=== PATIENT | male | born 1960 | race Caucasian/White ===

== ENCOUNTER 2020-06-10 18:23 | Observation (INO) | payer OTHER ==
[~2020-06-10] VITALS: Ht 167 cm; Wt 63.5 kg
[~2020-06-10 18:23] MED LIST: ACHD5005 PO; CYCL10TA9 PO; NAPR-243 PO
[2020-06-10] MEDS ORDERED: HYDROmorphone 2 MG/ML VIAL (DILAUDID) ONE (18:37)
[2020-06-10] MEDS ORDERED: NS IV 1000 ML 1,000 ML ONE (18:40)
[2020-06-10 18:49] LABS: BASOPHILS # (AUTO) 0.1 10^3/uL (0.0-0.1); BASOPHILS % (AUTO) 0 % (0-10); EOSINOPHILS # (AUTO) 0.3 10^3/uL (0.0-0.3); EOSINOPHILS % (AUTO) 2 % (0-10); HEMATOCRIT 40 % (40-54); HEMOGLOBIN 13.8 G/DL (13.3-17.7); LYMPHOCYTES # (AUTO) 2.1 X 10^3 (1.0-4.0); LYMPHOCYTES % (AUTO) 14 % (12-44); MEAN CORPUSCULAR HEMOGLOBIN 33 PG (25-34); MEAN CORPUSCULAR HGB CONC 35 G/DL (32-36); MEAN CORPUSCULAR VOLUME 95 FL (80-99); MEAN PLATELET VOLUME 9.1 FL (7.4-10.4); MONOCYTES # (AUTO) 0.8 X 10^3 (0.0-1.0); MONOCYTES % (AUTO) 6 % (0-12); NEUTROPHILS # (AUTO) 11.2 X 10^3 (1.8-7.8); NEUTROPHILS % (AUTO) 78 % (42-75); PLATELET COUNT 271 10^3/uL (130-400); WHITE BLOOD COUNT 14.5 10^3/uL (4.3-11.0)
--- NOTE | 2020-06-10 18:50 | ED General ---
General Chief Complaint: Chest Wall Stated Complaint: FALL;RIB PAIN Source of Information: Patient Exam Limitations: No Limitations History of Present Illness Date Seen by Provider: Jun 10, 2020 Time Seen by Provider: 18:48 Initial Comments To ER with reports of a fall and shortness of breath/left lateral rib pain after a fall down a few stairs from about chest height just prior to arrival. Timing/Duration: 1-2 Days Severity: Moderate Associated Systoms: Denies Symptoms Allergies and Home Medications Allergies Coded Allergies: No Known Drug Allergies (Unverified , 02/23/12) Home Medications Cyclobenzaprine Hcl 10 Mg Tablet, 1 EACH PO Q8HR PRN Prescribed by: CHRIS WAKEFIELD on 02/23/12 1123 Hydrocodone Bit/Acetaminophen 1 Each Tablet, 1-2 EACH PO Q6H PRN Prescribed by: CHRIS WAKEFIELD on 02/23/12 1123 Naproxen 500 Mg Tablet, 1 EACH PO BID PRN Prescribed by: CHRIS WAKEFIELD on 02/23/12 1123 Patient Home Medication List Home Medication List Reviewed: Yes Review of Systems Review of Systems Constitutional: see HPI EENTM: see HPI Respiratory: no symptoms reported Cardiovascular: no symptoms reported Genitourinary: no symptoms reported Musculoskeletal: no symptoms reported Skin: no symptoms reported Psychiatric/Neurological: No Symptoms Reported Hematologic/Lymphatic: No Symptoms Reported Immunological/Allergic: no symptoms reported Past Wlwvjfa-Ffdaix-Uqnzsp Hx Patient Social History Alcohol Use: Occasionally Uses Recreational Drug Use: No Smoking Status: Current Everyday Smoker Type Used: Cigarettes Recent Foreign Travel: No Contact w/Someone Who Travel: No Recent Hopitalizations: No Seasonal Allergies Seasonal Allergies: No Past Medical History Surgeries: No Respiratory: No Cardiac: No Neurological: No Genitourinary: No Gastrointestinal: No Musculoskeletal: No Endocrine: No HEENT: No Cancer: No Psychosocial: No Integumentary: No Physical Exam Vital Signs Vital Signs - First Documented 06/10/20 18:23 Temp 36.0 Pulse 82 Resp 14 B/P (MAP) 88/53 (65) Pulse Ox 96 Capillary Refill : Height, Weight, BMI Height: '" Weight: lbs. oz. kg; BMI Method:Stated General Appearance: No Apparent Distress, Thin, Other (little abrasion to the left lateral chest without palpable crepitus. Initial blood pressure was 80 systolic, this was repeated on the left arm and found to be 111/69.) Eyes: Bilateral Eye Normal Inspection, Bilateral Eye PERRL HEENT: PERRL/EOMI, TMs Normal Respiratory: Normal Breath Sounds, No Accessory Muscle Use, No Respiratory Di stress Cardiovascular: Regular Rate, Rhythm, Normal Peripheral Pulses Gastrointestinal: Non Tender, Soft Extremity: Normal Capillary Refill, Normal Inspection Neurologic/Psychiatric: Alert, Oriented x3 Skin: Normal Color, Warm/Dry Progress/Results/Core Measures Suspected Sepsis SIRS Temperature: Pulse: Respiratory Rate: Laboratory Tests 06/10/20 18:21: White Blood Count 14.5H Blood Pressure / Mean: Laboratory Tests 06/10/20 18:21: Creatinine 0.91, Platelet Count 271, Total Bilirubin 0.2 Results/Orders Lab Results Laboratory Tests Test 06/10/20 18:21 Range/Units White Blood Count 14.5 H 4.3-11.0 10^3/uL Red Blood Count 4.16 L 4.35-5.85 10^6/uL Hemoglobin 13.8 13.3-17.7 G/DL Hematocrit 40 40-54 % Mean Corpuscular Volume 95 80-99 FL Mean Corpuscular Hemoglobin 33 25-34 PG Mean Corpuscular Hemoglobin Concent 35 32-36 G/DL Red Cell Distribution Width 14.5 10.0-14.5 % Platelet Count 271 130-400 10^3/uL Mean Platelet Volume 9.1 7.4-10.4 FL Neutrophils (%) (Auto) 78 H 42-75 % Lymphocytes (%) (Auto) 14 12-44 % Monocytes (%) (Auto) 6 0-12 % Eosinophils (%) (Auto) 2 0-10 % Basophils (%) (Auto) 0 0-10 % Neutrophils # (Auto) 11.2 H 1.8-7.8 X 10^3 Lymphocytes # (Auto) 2.1 1.0-4.0 X 10^3 Monocytes # (Auto) 0.8 0.0-1.0 X 10^3 Eosinophils # (Auto) 0.3 0.0-0.3 10^3/uL Basophils # (Auto) 0.1 0.0-0.1 10^3/uL Neutrophils % (Manual) 80 % Lymphocytes % (Manual) 11 % Monocytes % (Manual) 5 % Eosinophils % (Manual) 3 % Band Neutrophils 1 % Blood Morphology Comment NORMAL Sodium Level 138 135-145 MMOL/L Potassium Level 4.2 3.6-5.0 MMOL/L Chloride Level 101 98-107 MMOL/L Carbon Dioxide Level 25 21-32 MMOL/L Anion Gap 12 5-14 MMOL/L Blood Urea Nitrogen 9 7-18 MG/DL Creatinine 0.91 0.60-1.30 MG/DL Estimat Glomerular Filtration Rate > 60 BUN/Creatinine Ratio 10 Glucose Level 101 70-105 MG/DL Calcium Level 9.1 8.5-10.1 MG/DL Corrected Calcium 8.9 8.5-10.1 MG/DL Total Bilirubin 0.2 0.1-1.0 MG/DL Aspartate Amino Transf (AST/SGOT) 24 5-34 U/L Alanine Aminotransferase (ALT/SGPT) 14 0-55 U/L Alkaline Phosphatase 48 40-136 U/L Total Protein 7.7 6.4-8.2 GM/DL Albumin 4.3 3.2-4.5 GM/DL My Orders Orders - MARI NOEL APRN Hydromorphone Injection (Dilaudid Inject (06/10/20 18:37) Cbc With Automated Diff (06/10/20 18:43) Comprehensive Metabolic Panel (06/10/20 18:43) Chest 1 View, Ap/Pa Only (06/10/20 18:43) Ct Chest/Abdomen/Pelvis W (06/10/20 18:43) Ns Iv 1000 Ml (Sodium Chloride 0.9%) (06/10/20 18:40) Hydromorphone Injection (Dilaudid Inject (06/10/20 19:00) Hydromorphone Injection (Dilaudid Inject (06/10/20 19:00) Manual Differential (06/10/20 18:21) Iohexol Injection (Omnipaque 350 Mg/Ml 1 (06/10/20 19:00) Received Contrast (Hold Metformin- Contr (06/10/20 19:00) Ns (Ivpb) (Sodium Chloride 0.9% Ivpb Bag (06/10/20 19:00) Incentive Spirometry (Nursing) Q2H (06/10/20 19:58) Ketamine Syringe (Ed Only) (Ketamine Syr (06/10/20 20:00) Ns (Ivpb) (Sodium Chloride 0.9%) (06/10/20 20:15) Ns (Ivpb) (Sodium Chloride 0.9%) (06/10/20 19:59) Ketorolac Injection (Toradol Injection) (06/10/20 20:15) Medications Given in ED Current Medications Medications Dose Ordered Sig/Carlita Route Start Time Stop Time Status Last Admin Dose Admin Hydromorphone HCl 0.5 mg ONCE ONCE IV 06/10/20 19:00 06/10/20 19:01 DC 06/10/20 18:38 0.5 MG Hydromorphone HCl 0.5 mg ONCE ONCE IV 06/10/20 19:00 06/10/20 19:01 DC 06/10/20 19:30 0.5 MG Iohexol 100 ml ONCE ONCE IV 06/10/20 19:00 06/10/20 19:01 DC 06/10/20 19:12 100 ML Ketamine HCl 15 mg ONCE ONCE IV 06/10/20 20:00 06/10/20 20:01 DC 06/10/20 20:12 15 MG Sodium Chloride 100 ml ONCE ONCE IV 06/10/20 19:00 06/10/20 19:01 DC 06/10/20 19:12 100 ML Sodium Chloride 250 ml @ 999 mls/hr Q16M ONCE IV 06/10/20 20:15 06/10/20 20:30 06/10/20 20:12 999 MLS/HR Sodium Chloride 1,000 ml @ ud STK-MED ONCE .ROUTE 06/10/20 18:40 06/10/20 18:46 DC 06/10/20 18:40 999 MLS/HR Vital Signs/I&O 06/10/20 18:23 Temp 36.0 Pulse 82 Resp 14 B/P (MAP) 88/53 (65) Pulse Ox 96 Capillary Refill : Diagnostic Imaging Diagonstic Imaging: Xray Comments NAME: DOMONIQUE VERA MED REC#: [id number] PT STATUS: REG ER : 1960 PHYSICIAN: MARI NOEL APRN ADMIT DATE: 06/10/20/ER Signed Date of Exam:06/10/20 CT CHEST/ABDOMEN/PELVIS W PROCEDURE: CT chest, abdomen, and pelvis with contrast. TECHNIQUE: Multiple contiguous axial images were obtained through the chest, abdomen, and pelvis after the administration of intravenous contrast. Auto Exposure Controls were utilized during the CT exam to meet ALARA standards for radiation dose reduction. DATE: June 10, 2020. COMPARISON: June 10, 2020. INDICATION: 59-year-old male, fall. Left rib pain. Hypotension. FINDINGS: There are mild upper lobe findings of emphysema. There is a 3 mm right lower lobe pulmonary nodule on axial image 44. There is no identified lung mass. There is no otherwise noted focal airspace consolidation. There is no pneumothorax. There is no pleural effusion. The central airways are patent. There is no identified central pulmonary embolus. The main pulmonary artery is normal in caliber. The heart is not enlarged. There is no pericardial effusion. There are coronary artery calcifications and additional areas of atherosclerotic disease. There is no evidence of acute aortic injury. There is no mediastinal hematoma. The liver is unremarkable in size and contour. There is no identified liver laceration. There is no perihepatic fluid. The main, right, and left portal veins are patent. The gallbladder is unremarkable. There is no biliary ductal dilation. The main pancreatic duct is not abnormally dilated. Unremarkable appearance of the pancreatic parenchyma. The spleen is normal in size. The adrenal glands are unremarkable. Unremarkable appearance of the renal parenchyma. The urinary collecting systems are not distended. The urinary bladder is unremarkable. The intestinal tract is not distended. There is no free intraperitoneal air. There is no drainable fluid collection. There is no free pelvic fluid. There is no identified abnormally enlarged lymph node in the abdomen or pelvis meeting CT size criteria for adenopathy. There are 2 separate displaced fractures of the left 7th rib as well as a displaced fracture of the left 8th rib. There is a mildly displaced fracture of the right lateral 4th rib of uncertain exact age. There are chronic-appearing deformities of the right 3rd, 5th, and 6th ribs as well as a chronic-appearing deformity of the right 12th rib and 10th and 11th ribs. IMPRESSION: CT chest, abdomen, and pelvis. 1. Acute displaced fractures of the left 7th rib laterally, left 7th rib posteriorly, and left 8th rib. 2. No sizable pleural effusion or pneumothorax. 3. No additional acute cardiopulmonary abnormality. 4. No identified acute abnormality in the abdomen or pelvis. Dictated by: Dictated on workstation # [id number] Dict: 06/10/201920 Trans: 06/10/201930 CV [id number] Interpreted by: TRENT CASTILLO MD Electronically signed by: TRENT CASTILLO MD 06/10/201930 Departure Communication (Admissions) Time/Spoke to Admitting Phy: 20:16 1999-after 1mg dilaudid his pain is still at what he would consider an intolerable level. Ketamine ordered. We'll discuss with trauma surgeon. 2010-spoke with Dr. Joel, we'll admit, consult anesthesia for intercostal nerve block Impression Primary Impression: Rib fractures Additional Impression: Intractable pain Disposition: ADMITTED INPATIENT Condition: Stable Admissions Decision to Admit Reason: Admit from ER (Trauma) Decision to Admit/Date: Jun 10, 2020 Time/Decision to Admit Time: 19:59 Departure-Patient Inst. Decision time for Depature: 19:52 Referrals: NO,LOCAL PHYSICIAN (PCP/Family) Primary Care Physician MARI NOEL APRN Jun 10, 2020 18:50
[2020-06-10 18:58] LABS: ALBUMIN 4.3 GM/DL (3.2-4.5); CHLORIDE 101 MMOL/L (98-107); POTASSIUM 4.2 MMOL/L (3.6-5.0); SODIUM 138 MMOL/L (135-145)
[2020-06-10 18:59] LABS: CALCIUM 9.1 MG/DL (8.5-10.1)
[2020-06-10 19:00] LABS: GLUCOSE 101 MG/DL (70-105); TOTAL PROTEIN 7.7 GM/DL (6.4-8.2)
[2020-06-10] MEDS ORDERED: HOLD METFORMIN - RECEIVED CONTRAST 20 ML VIAL IV SCH (19:00)
[2020-06-10] MEDS ORDERED: HYDROmorphone 2 MG/ML VIAL (DILAUDID) IV ONE ×2 (19:00)
[2020-06-10] MEDS ORDERED: IOHEXOL 350 MG/ML 100 ML (OMNIPAQUE 350) VIAL IV ONE (19:00)
[2020-06-10] MEDS ORDERED: NS 100 ML (IVPB) BAG IV ONE (19:00)
[2020-06-10 19:01] LABS: CARBON DIOXIDE 25 MMOL/L (21-32)
[2020-06-10 19:02] LABS: BILIRUBIN,TOTAL 0.2 MG/DL (0.1-1.0)
[2020-06-10 19:04] LABS: ALKALINE PHOSPHATASE 48 U/L (40-136); CREATININE SERUM 0.91 MG/DL (0.60-1.30); GFR ESTIMATED > 60
[2020-06-10 19:05] LABS: BUN/CREATININE RATIO 10
--- NOTE | 2020-06-10 19:05 | NUR ---
ASSUMED CARE OF THIS PATIENT AT THIS TIME. REPORT FROM YOSEF GALICIA. PATIENT IN CT AT THIS TIME.
[2020-06-10 19:07] LABS: ALANINE AMINOTRANSFERASE 14 U/L (0-55)
--- NOTE | 2020-06-10 19:11 | Diagnostic Imaging Report ---
INDICATION: Fall with left rib pain, Single AP view of the chest is obtained. There is no previous study available at this time for comparison. Heart size and pulmonary vascularity are within normal limits. There is no pneumothorax or consolidation. There is a mildly displaced fracture involving the posterior aspect of left 6th rib with nondisplaced fracture involving left 7th rib. IMPRESSION: Left 6th and 7th rib fractures without evidence of pneumothorax or significant pulmonary contusion. Dictated by: Dictated on workstation # [id number]
--- NOTE | 2020-06-10 19:33 | Diagnostic Imaging Report ---
PROCEDURE: CT chest, abdomen, and pelvis with contrast. TECHNIQUE: Multiple contiguous axial images were obtained through the chest, abdomen, and pelvis after the administration of intravenous contrast. Auto Exposure Controls were utilized during the CT exam to meet ALARA standards for radiation dose reduction. DATE: June 10, 2020. COMPARISON: June 10, 2020. INDICATION: 59-year-old male, fall. Left rib pain. Hypotension. FINDINGS: There are mild upper lobe findings of emphysema. There is a 3 mm right lower lobe pulmonary nodule on axial image 44. There is no identified lung mass. There is no otherwise noted focal airspace consolidation. There is no pneumothorax. There is no pleural effusion. The central airways are patent. There is no identified central pulmonary embolus. The main pulmonary artery is normal in caliber. The heart is not enlarged. There is no pericardial effusion. There are coronary artery calcifications and additional areas of atherosclerotic disease. There is no evidence of acute aortic injury. There is no mediastinal hematoma. The liver is unremarkable in size and contour. There is no identified liver laceration. There is no perihepatic fluid. The main, right, and left portal veins are patent. The gallbladder is unremarkable. There is no biliary ductal dilation. The main pancreatic duct is not abnormally dilated. Unremarkable appearance of the pancreatic parenchyma. The spleen is normal in size. The adrenal glands are unremarkable. Unremarkable appearance of the renal parenchyma. The urinary collecting systems are not distended. The urinary bladder is unremarkable. The intestinal tract is not distended. There is no free intraperitoneal air. There is no drainable fluid collection. There is no free pelvic fluid. There is no identified abnormally enlarged lymph node in the abdomen or pelvis meeting CT size criteria for adenopathy. There are 2 separate displaced fractures of the left 7th rib as well as a displaced fracture of the left 8th rib. There is a mildly displaced fracture of the right lateral 4th rib of uncertain exact age. There are chronic-appearing deformities of the right 3rd, 5th, and 6th ribs as well as a chronic-appearing deformity of the right 12th rib and 10th and 11th ribs. IMPRESSION: CT chest, abdomen, and pelvis. 1. Acute displaced fractures of the left 7th rib laterally, left 7th rib posteriorly, and left 8th rib. 2. No sizable pleural effusion or pneumothorax. 3. No additional acute cardiopulmonary abnormality. 4. No identified acute abnormality in the abdomen or pelvis. Dictated by: Dictated on workstation # [id number]
[2020-06-10] MEDS ORDERED: NS (IVPB) 250 ML ONE (19:59)
[2020-06-10] MEDS ORDERED: KETAMINE/NaCl 50 MG/5 ML SYRINGE (ED ONLY) IV ONE (20:00)
[2020-06-10 20:03] LABS: BAND NEUTROPHILS 1 %; EOSINOPHILS % (MANUAL) 3 %; LYMPHOCYTES % (MANUAL) 11 %; MONOCYTES % (MANUAL) 5 %; NEUTROPHILS % (MANUAL) 80 %; RBC MORPH NORMAL
[2020-06-10] MEDS ORDERED: NS (IVPB) 250 ML IV ONE (20:15)
[2020-06-10] MEDS ORDERED: KETOROLAC 30 MG/ML VIAL IVP ONE (20:15)
[2020-06-10] MEDS ORDERED: LIDOCAINE 1% INJ 20 ML 20 ML VIAL ONE (21:15)
--- NOTE | 2020-06-10 21:20 | NUR ---
DOMONIQUE VERA admitted to room 419-1, with an admitting diagnosis of rib fracture and intractable pain, on 06/10/20 from [facility] via wheelchair, accompanied by staff.DOMONIQUE VERA introduced to surroundings, call light, bed controls, phone, TV, temperature control, lights, meal times, smoking policy, visitor policy, side rail policy, bathrooms and showers. Patient Rights given to patient in the handbook. DOMONIQUE VERA verbalizes understanding that [facility] is not responsible for the loss or damage to any personal effects or valuables that are kept in the patients posession during their hospitalization.
--- NOTE | 2020-06-10 21:30 | NUR ---
Pulled 1% Lidocaine for the anesthesiologist Dr. Attila Gonzalez. Patient did not tolerate intercostal block well and requested Dr. Gonzalez to stop after the first block was placed. Remaining Lidocaine placed in patient drawer with ID sticker.
[2020-06-10] MEDS ORDERED: ROPIVACAINE 5MG/ML 30ML VIAL ONE (21:38)
[2020-06-10 21:40] VITALS: BP 133/75
--- NOTE | 2020-06-10 21:41 | Anesthesia-Procedure Note ---
Procedures/Interventions Procedure Start/Stop/Diagnosis Date of Procedure: Jun 10, 2020 Start Time: 21:11 Stop Time: 21:25 Additional Procedures Procedures attempted intercostal nerve block. inject rib 8 on left after walking off rib inferiorly . 1 cc or .5 ropiviciane injected after negative aspiration. pt said i dont want anymore. procedure aborted. DAYANA SAAB CRNA Jun 10, 2020 21:41
--- NOTE | 2020-06-10 21:45 | NUR ---
Patient placed on continuous pulse ox. per Dr. Fallon orders. Oxygen saturation at %100.
[2020-06-10] MEDS ORDERED: LACTATED RINGERS 1,000 ML IV ONE (22:35)
[2020-06-10] MEDS ORDERED: KETOROLAC 15 MG/ML VIAL IV PRN (23:00)
[2020-06-10] MEDS ORDERED: HYDROmorphone 2 MG/ML VIAL (DILAUDID) IV PRN (23:00)
[2020-06-10] MEDS ORDERED: NALOXONE 0.4 MG/ML 1 ML (NARCAN) VIAL IV PRN (23:00)
[2020-06-10] MEDS: LACTATED RINGERS 1,000 ML IV SCH (23:15)
[2020-06-10] MEDS: oxyCODONE/APAP 10/325MG (PERCOCET 10) TABLET PO PRN (23:37)
[2020-06-11 00:12] VITALS: BP 98/66
[2020-06-11 00:30] VITALS: BP 111/69
[2020-06-11 04:00] VITALS: BP 108/76
[2020-06-11 05:05] LABS: BASOPHILS % (AUTO) 0 % (0-10); EOSINOPHILS # (AUTO) 0.3 10^3/uL (0.0-0.3); EOSINOPHILS % (AUTO) 4 % (0-10); HEMATOCRIT 35 % (40-54); HEMOGLOBIN 11.7 G/DL (13.3-17.7); LYMPHOCYTES # (AUTO) 2.2 X 10^3 (1.0-4.0); LYMPHOCYTES % (AUTO) 27 % (12-44); MEAN CORPUSCULAR HEMOGLOBIN 32 PG (25-34); MEAN CORPUSCULAR HGB CONC 34 G/DL (32-36); MEAN CORPUSCULAR VOLUME 96 FL (80-99); MEAN PLATELET VOLUME 9.2 FL (7.4-10.4); MONOCYTES # (AUTO) 0.9 X 10^3 (0.0-1.0); MONOCYTES % (AUTO) 11 % (0-12); NEUTROPHILS # (AUTO) 4.8 X 10^3 (1.8-7.8); NEUTROPHILS % (AUTO) 58 % (42-75); PLATELET COUNT 236 10^3/uL (130-400); WHITE BLOOD COUNT 8.3 10^3/uL (4.3-11.0)
[2020-06-11 05:12] LABS: ALBUMIN 3.5 GM/DL (3.2-4.5); CHLORIDE 106 MMOL/L (98-107); POTASSIUM 3.8 MMOL/L (3.6-5.0); SODIUM 138 MMOL/L (135-145)
[2020-06-11 05:13] LABS: CALCIUM 8.4 MG/DL (8.5-10.1)
[2020-06-11 05:15] LABS: GLUCOSE 84 MG/DL (70-105); TOTAL PROTEIN 5.9 GM/DL (6.4-8.2)
[2020-06-11 05:16] LABS: CARBON DIOXIDE 24 MMOL/L (21-32)
[2020-06-11 05:17] LABS: BILIRUBIN,TOTAL 0.3 MG/DL (0.1-1.0)
[2020-06-11 05:18] LABS: ALKALINE PHOSPHATASE 43 U/L (40-136); CREATININE SERUM 0.81 MG/DL (0.60-1.30); GFR ESTIMATED > 60
[2020-06-11 05:19] LABS: BUN/CREATININE RATIO 11
[2020-06-11 05:21] LABS: ALANINE AMINOTRANSFERASE 11 U/L (0-55)
[2020-06-11] MEDS: oxyCODONE/APAP 10/325MG (PERCOCET 10) TABLET PO PRN ×2 (05:27→11:07)
[2020-06-11] MEDS: LACTATED RINGERS 1,000 ML IV SCH (05:28)
[2020-06-11 08:00] VITALS: BP 104/71
[2020-06-11] MEDS ORDERED: RT-ALBUTEROL SULF 2.5 MG/3 ML PRE-MIX VIAL INH SCH (08:00)
[2020-06-11] MEDS ORDERED: DOCUSATE SODIUM 100 MG (COLACE) CAP PO SCH (09:00)
--- NOTE | 2020-06-11 09:12 | NUR ---
SPOKE WITH THE PT TO COMPLETE THE MED REC PT DENIES TAKING ANY PRESCRIPTION OR OTC MEDS I DID UPDATE THE PTS PREFERRED PHARMACY TO [facility]
--- NOTE | 2020-06-11 10:46 | History & Physical-Surgical ---
MARISSA SILVA MED STUDENT 06/11/20 1046: History of Present Illness History of Present Illness Reason for visit/HPI cc- L rib 7 and rib 8 fractures hpi: pt was sitting up in bed watching tv. pt stated that was walking and fell onto the steps and hit his left side. pt describes the pain as sharp. pt rated pain as an 8 out of 10. pt stated that coughing really makes the pain worse. pt stated that only the pain medications make the pain better. pt states that he is doing the incentive spirometer. there are no lacerations or any bruising along the L ribs. Date of Admission Jun 10, 2020 at 20:13 Date Seen by a Provider: Jun 11, 2020 Time Seen by a Provider: 09:50 I consulted on this patient on 06/11/20 10:41 Attending Physician Ricco Joel DO Admitting Physician No,Local Physician Consult Allergies and Home Medications Allergies Coded Allergies: No Known Drug Allergies (Unverified , 02/23/12) Home Medications Ketorolac Tromethamine 10 Mg Tablet, 10 MG PO Q8H Prescribed by: RICCO JOEL on 06/11/20 1253 Oxycodone HCl/Acetaminophen 1 Each Tablet, 1 TAB PO Q6H PRN for PAIN-MODERATE (5-7) Prescribed by: RICCO JOEL on 06/11/20 1253 Past Yutwwei-Ksjjsr-Kwyrir Hx Patient Social History Alcohol Use: Regular Use Recreational Drug Use: No Smoking Status: Current Everyday Smoker Type Used: Cigarettes Seasonal Allergies Seasonal Allergies: No Surgeries History of Surgeries: No Respiratory History of Respiratory Disorde: No Cardiovascular History of Cardiac Disorders: No Neurological History of Neurological Disord: No Genitourinary History of Genitourinary Disor: No Gastrointestinal History of Gastrointestinal Di: No Musculoskeletal History of Musculoskeletal Dis: No Endocrine History of Endocrine Disorders: No HEENT History of HEENT Disorders: No Cancer History of Cancer: No Psychosocial History of Psychiatric Problem: No Integumentary History of Skin or Integumenta: No Family Medical History Significant Family History: Cancer (mother of bone marrow cancer ), Diabetes Family Medial History: Completed stroke 19 FATHER Diabetes mellitus 19 MOTHER Review of Systems Constitutional: No chills, No fever, No malaise Respiratory: No cough, No short of breath Cardiovascular: No chest pain, No palpitations Gastrointestinal: No abdominal pain, No constipation, No diarrhea, No nausea, No vomiting Genitourinary: No dysuria, No incontinence Physical Exam Vital Signs Vital Signs - First Documented 06/10/20 06/11/20 18:23 00:30 Temp 36.0 Pulse 82 Resp 14 B/P (MAP) 88/53 (65) Pulse Ox 96 FiO2 21 Capillary Refill : Less Than 3 Seconds Height, Weight, BMI Height: '" Weight: lbs. oz. 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 Skin: Normal Color, Warm/Dry Lymphatic: No Adenopathy Data Review Labs Laboratory Tests 06/10/20 18:21: White Blood Count 14.5H, Red Blood Count 4.16L, Hemoglobin 13.8, Hematocrit 40, Mean Corpuscular Volume 95, Mean Corpuscular Hemoglobin 33, Mean Corpuscular Hemoglobin Concent 35, Red Cell Distribution Width 14.5, Platelet Count 271, Mean Platelet Volume 9.1, Neutrophils (%) (Auto) 78H, Lymphocytes (%) (Auto) 14, Monocytes (%) (Auto) 6, Eosinophils (%) (Auto) 2, Basophils (%) (Auto) 0, Neutrophils # (Auto) 11.2H, Lymphocytes # (Auto) 2.1, Monocytes # (Auto) 0.8, Eosinophils # (Auto) 0.3, Basophils # (Auto) 0.1, Neutrophils % (Manual) 80, Lymphocytes % (Manual) 11, Monocytes % (Manual) 5, Eosinophils % (Manual) 3, Band Neutrophils 1, Blood Morphology Comment NORMAL, Sodium Level 138, Potassium Level 4.2, Chloride Level 101, Carbon Dioxide Level 25, Anion Gap 12, Blood Urea Nitrogen 9, Creatinine 0.91, Estimat Glomerular Filtration Rate > 60, BUN/Creatinine Ratio 10, Glucose Level 101, Calcium Level 9.1, Corrected Calcium 8.9, Total Bilirubin 0.2, Aspartate Amino Transf (AST/SGOT) 24, Alanine Aminotransferase (ALT/SGPT) 14, Alkaline Phosphatase 48, Total Protein 7.7, Albumin 4.3 06/11/20 04:45: White Blood Count 8.3, Red Blood Count 3.62L, Hemoglobin 11.7L, Hematocrit 35L, Mean Corpuscular Volume 96, Mean Corpuscular Hemoglobin 32, Mean Corpuscular Hemoglobin Concent 34, Red Cell Distribution Width 14.7H, Platelet Count 236, Mean Platelet Volume 9.2, Neutrophils (%) (Auto) 58, Lymphocytes (%) (Auto) 27, Monocytes (%) (Auto) 11, Eosinophils (%) (Auto) 4, Basophils (%) (Auto) 0, Neutrophils # (Auto) 4.8, Lymphocytes # (Auto) 2.2, Monocytes # (Auto) 0.9, Eosinophils # (Auto) 0.3, Basophils # (Auto) 0.0, Sodium Level 138, Potassium Level 3.8, Chloride Level 106, Carbon Dioxide Level 24, Anion Gap 8, Blood Urea Nitrogen 9, Creatinine 0.81, Estimat Glomerular Filtration Rate > 60, BUN/Creatinine Ratio 11, Glucose Level 84, Calcium Level 8.4L, Corrected Calcium 8.8, Total Bilirubin 0.3, Aspartate Amino Transf (AST/SGOT) 16, Alanine Aminotransferase (ALT/SGPT) 11, Alkaline Phosphatase 43, Total Protein 5.9L, Albumin 3.5 Assessment/Plan Assessment/Plan Assessment/Plan L rib 7 and rib 8 fractures continue incentive spirometry pain control as needed Clinical Quality Measures DVT/VTE Risk/Contraindication: Risk Factor Score Per Nursin RFS Level Per Nursing on Admit: 2=Moderate RICCO JOEL DO 06/11/20 1602: History of Present Illness History of Present Illness Reason for visit/HPI Pt seen and examined, states pain is better. Unable to tolerate rib block last night; states the pain he has now is better than it was and much better with pain pills. Time Seen by a Provider: 12:36 Allergies and Home Medications Allergies Coded Allergies: No Known Drug Allergies (Unverified , 02/23/12) Home Medications Ketorolac Tromethamine 10 Mg Tablet, 10 MG PO Q8H Prescribed by: RICCO JOEL on 06/11/20 1253 Oxycodone HCl/Acetaminophen 1 Each Tablet, 1 TAB PO Q6H PRN for PAIN-MODERATE (5-7) Prescribed by: RICCO JOEL on 06/11/20 1253 Patient Home Medication List Home Medication List Reviewed: Yes Past Vmggtrk-Jpzpbn-Galytz Hx Patient Social History Alcohol Use: Regular Use Smoking Status: Current Everyday Smoker Family Medical History Significant Family History: Cancer (mother of bone marrow cancer ), Bhavya betes Family Medial History: Completed stroke 19 FATHER Diabetes mellitus 19 MOTHER Physical Exam General Appearance: Mild Distress, Thin Eyes: Bilateral Eye PERRL, Bilateral Eye EOMI HEENT: No Scleral Icterus (L), No Scleral Icterus (R); Other (poor dentition) Respiratory: Lungs Clear, No Accessory Muscle Use, No Respiratory Distress, Other (chest pain with deep inspiration ) Cardiovascular: Regular Rate, Rhythm, No Murmur Gastrointestinal: No Organomegaly, Non Tender, Soft Neurologic/Psychiatric: Alert, Oriented x3, Normal Mood/Affect, 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 TECHNIQUE: Multiple contiguous axial images were obtained through the chest, abdomen, and pelvis after the administration of intravenous contrast. Auto Exposure Controls were utilized during the CT exam to meet ALARA standards for radiation dose reduction. DATE: June 10, 2020. COMPARISON: June 10, 2020. INDICATION: 59-year-old male, fall. Left rib pain. Hypotension. FINDINGS: There are mild upper lobe findings of emphysema. There is a 3 mm right lower lobe pulmonary nodule on axial image 44. There is no identified lung mass. There is no otherwise noted focal airspace consolidation. There is no pneumothorax. There is no pleural effusion. The central airways are patent. There is no identified central pulmonary embolus. The main pulmonary artery is normal in caliber. The heart is not enlarged. There is no pericardial effusion. There are coronary artery calcifications and additional areas of atherosclerotic disease. There is no evidence of acute aortic injury. There is no mediastinal hematoma. The liver is unremarkable in size and contour. There is no identified liver laceration. There is no perihepatic fluid. The main, right, and left portal veins are patent. The gallbladder is unremarkable. There is no biliary ductal dilation. The main pancreatic duct is not abnormally dilated. Unremarkable appearance of the pancreatic parenchyma. The spleen is normal in size. The adrenal glands are unremarkable. Unremarkable appearance of the renal parenchyma. The urinary collecting systems are not distended. The urinary bladder is unremarkable. The intestinal tract is not distended. There is no free intraperitoneal air. There is no drainable fluid collection. There is no free pelvic fluid. There is no identified abnormally enlarged lymph node in the abdomen or pelvis meeting CT size criteria for adenopathy. There are 2 separate displaced fractures of the left 7th rib as well as a displaced fracture of the left 8th rib. There is a mildly displaced fracture of the right lateral 4th rib of uncertain exact age. There are chronic-appearing deformities of the right 3rd, 5th, and 6th ribs as well as a chronic-appearing deformity of the right 12th rib and 10th and 11th ribs. IMPRESSION: CT chest, abdomen, and pelvis. 1. Acute displaced fractures of the left 7th rib laterally, left 7th rib posteriorly, and left 8th rib. 2. No sizable pleural effusion or pneumothorax. 3. No additional acute cardiopulmonary abnormality. 4. No identified acute abnormality in the abdomen or pelvis. Dictated by: Dictated on workstation # [id number] Dict: 06/10/201920 Trans: 06/10/201930 CV [id number] Interpreted by: TRENT CASTILLO MD Electronically signed by: TRENT CASTILLO MD 06/10/201930 Assessment/Plan Assessment/Plan Admission Diagonsis Multiple rib fx Uncontrollable pain Admission Status: Observation Assessment/Plan Multiple rib fx Uncontrollable pain Pain control, must use IS and take deep breaths. Pt will be sent home with some Percocet and Toradol for pain relief. Pt told he could develop pneumonia if he doesn't take breaths; therefore, he must continue to do that even though it is very painful. No reason to keep him longer in the hospital and he wants to go home; will D/C him home. Supervisory-Addendum Brief Verification & Attestation Participated in pt care: history, MDM, physical Personally performed: exam, history, MDM Care discussed with: Medical Student Procedures: n/a Verification and Attestation of Medical Student E/M Service A medical student performed and documented this service. I then reviewed and verified all information documented by the medical student and made modifications to such information, when appropriate. I personally performed a physical exam, medical decision making and then discussed any differences between the notes and made revisions as necessary to create one note. Ricco Joel , 06/11/20 , 16:02 MARISSA SILVA MED STUDENT Jun 11, 2020 10:46 RICCO JOEL DO Jun 11, 2020 16:02
[2020-06-11 12:00] VITALS: BP 117/63
[2020-06-11] MEDS ORDERED: KETO10TA PO (12:53)
[2020-06-11] MEDS ORDERED: OXYC1TAB12 PO (12:53)
--- NOTE | 2020-06-11 15:55 | Discharge Inst-Surgical ---
Discharge Inst-Surgical Depart Medication/Instructions New, Converted or Re-Newed RX: RX Given to Pt/Family Patient Instructions Follow up Appt: Make appointment for 1 week. [phone] Instructions: No lifting greater than 20 pounds. No strenuous activity. May shower in 24 hours, no tub bath or soaking. Use incentive spirometer at home as directed. No Smoking Symptoms to Report: Appetite Changes, Extremity Discoloration, Numbness/Tingling, Swelling Increased, Bleeding Excessive, Eyesight Changes, Pain Increased, Urine Color Change, Constipation(Persistent), Fever over 101 degree F, Pain/Pressure in chest, Urinating Difficulty, Cough Up/Vomit Blood, Heart Beat Irreg/Pounding, Pain/Pressure in jaw, Cramps in feet or legs, Lightheadedness, Pain/Pressure in shoulder, Diarrhea(Persistent), Memory Changes Suddenly, Questions/Concerns, Weight gain consecutive days, Dizziness/Fainting, Nausea/Vomiting, Shortness of Breath, Weight gain over 2 pounds If questions or concerns contact your physician Or seek help at emergency department. Activity Activity as Tolerated: Yes Activity Instructions: Avoid Pulling & Pushing Driving Instructions: No Driving/Refer to Dr. Felder Discharge Diet: No Restrictions Diet After 24 Hours: Clear Liquid if Nauseous If Any Problems/Questions/Issu: Contact Your Physician, Go to Emergency Room Skin/Wound Care Infection Signs and Symptoms: Increased Redness, Increased Swelling, Temperature Above 101 F Bathing Instructions: RICCO Morales DO Jun 11, 2020 15:55
== END 2020-06-11 15:54 | disposition home or self-care (01) ==
LOC: EDUNIT# 18:23 → ER 18:24 → UNDOADMOB 20:13 → 4TH 20:13 → UNDOADMOB 21:40 → UNDODISOB 06-11 16:05
PROVIDERS: ADMIT Surgery; ATTEND Surgery
DX: S22.42XA Multiple fractures of ribs, left side, initial encounter for closed fracture (principal); F17.210 Nicotine dependence, cigarettes, uncomplicated; W10.8XXA Fall (on) (from) other stairs and steps, initial encounter; Z80.8 Family history of malignant neoplasm of other organs or systems; Z83.3 Family history of diabetes mellitus
CPT/HCPCS: 71045; 71260; 74177; 80053 ×2; 85007; 85025; 85027; 94640; 94664 ×2; 94760; 99283; G0378; 36415; 96361; 96374; 96375; 96376